=== PATIENT | male | born 1955 | race Caucasian/White ===

== ENCOUNTER 2022-11-25 13:11 | Outpatient (CLI) | payer MEDICARE, OTHER | END 2022-11-25 13:12 | disposition home or self-care (01) | LOC: CT 13:11 | PROVIDERS: ATTEND Thoracic Surgery (Cardiothoracic Vascular Surgery) | DX: I71.43 Infrarenal abdominal aortic aneurysm, without rupture (principal); K57.30 Diverticulosis of large intestine without perforation or abscess without bleeding | CPT/HCPCS: 74174; 82565 ==